=== PATIENT | female | born 1970 | race Caucasian/White ===

== ENCOUNTER 2018-12-12 07:23 | Day surgery (SDC) | payer OTHER ==
[~2018-12-12] VITALS: Ht 162.6 cm; Wt 82.6 kg
[2018-12-12] MEDS ORDERED: BUPIVACAINE-MPF/EPI 0.25% 30 ML VIAL INJ ONE (08:59)
[2018-12-12] MEDS ORDERED: LIDOCAINE 1% 500 MG/50 ML VIAL ONE (08:59)
[2018-12-12] MEDS ORDERED: MORPHINE SULFATE 4 MG/ML SYR IV PRN (11:40)
[2018-12-12] MEDS ORDERED: ONDANSETRON 4 MG/2 ML VIAL IV PRN (11:40)
[2018-12-12] MEDS ORDERED: HYDROcodone/APAP 5/325 MG 1 TAB TAB PO PRN (11:40)
[2018-12-12] MEDS ORDERED: HYDROmorphone 1 MG/ML AMP IVP PRN (11:40)
[2018-12-12] MEDS ORDERED: MORPHINE SULFATE 2 MG/ML SYR IVP PRN (11:40)
== END 2018-12-12 12:15 | disposition home or self-care (01) ==
LOC: MDS 07:23 → MMU 07:23 → MDS 12:15
PROVIDERS: ATTEND Surgery
DX: D17.1 Benign lipomatous neoplasm of skin and subcutaneous tissue of trunk (principal); Z98.51 Tubal ligation status
CPT/HCPCS: 21931; 88304; J0690; J2001; J3490; J7060

== ENCOUNTER 2019-01-30 06:11 | Day surgery (SDC) | payer OTHER ==
[~2019-01-30] VITALS: Ht 162.6 cm; Wt 82.6 kg
[2019-01-30] MEDS ORDERED: BUPIVACAINE-MPF/EPI 0.5% 30 ML VIAL INJ ONE (08:06)
[2019-01-30] MEDS ORDERED: PROPOFOL 200 MG/20 ML VIAL IV ONE (08:09)
[2019-01-30] MEDS ORDERED: SEVOFLURANE 250 ML BTL INH ONE (08:09)
[2019-01-30] MEDS ORDERED: fentaNYL 0.05 MG/ML VIAL ONE (08:15)
[2019-01-30] MEDS ORDERED: MIDAZOLAM 2 MG/2 ML VIAL ONE (08:16)
[2019-01-30] MEDS ORDERED: HYDROmorphone 1 MG/ML AMP IVP PRN ×2 (09:00→09:35)
[2019-01-30] MEDS ORDERED: ONDANSETRON 4 MG/2 ML VIAL IVP PRN (09:00)
[2019-01-30] MEDS ORDERED: MORPHINE SULFATE 4 MG/ML SYR IV PRN (09:35)
[2019-01-30] MEDS ORDERED: MORPHINE SULFATE 2 MG/ML SYR IVP PRN (09:35)
[2019-01-30] MEDS ORDERED: HYDROcodone/APAP 5/325 MG 1 TAB TAB PO PRN (09:35)
[2019-01-30] MEDS ORDERED: ONDANSETRON 4 MG/2 ML VIAL IV PRN (10:30)
== END 2019-01-30 10:36 | disposition home or self-care (01) ==
LOC: MOR 06:11 → MMU 06:12 → MOR 10:36
PROVIDERS: ATTEND Surgery
DX: D17.1 Benign lipomatous neoplasm of skin and subcutaneous tissue of trunk (principal); E66.3 Overweight
CPT/HCPCS: 21931; 71045; 81025; 88304; J0690; J2250; J2704; J3010; J3490; J7060; J7120

== ENCOUNTER 2019-10-03 06:13 | Day surgery (SDC) | payer OTHER, SELFPAY ==
[~2019-10-03] VITALS: Ht 167.6 cm; Wt 81.6 kg
[2019-10-03] MEDS ORDERED: diphenhydrAMINE 50 MG/ML VIAL ONE (07:19)
[2019-10-03] MEDS ORDERED: fentaNYL 0.05 MG/ML VIAL ONE (07:19)
[2019-10-03] MEDS ORDERED: MIDAZOLAM 2 MG/2 ML VIAL ONE (07:20)
[2019-10-03] MEDS ORDERED: LIDOCAINE 2% 100 MG/5 ML UJET TP ONE (07:20)
[2019-10-03] MEDS ORDERED: MIDAZOLAM 2 MG/2 ML VIAL IVP ONE (08:10)
[2019-10-03] MEDS ORDERED: fentaNYL 0.05 MG/ML VIAL IVP ONE (08:10)
== END 2019-10-03 08:50 | disposition home or self-care (01) ==
LOC: MDS 06:13 → MMU 06:17 → MDS 08:50
PROVIDERS: ATTEND Internal Medicine Gastroenterology
DX: K92.1 Melena (principal); K64.8 Other hemorrhoids; K64.4 Residual hemorrhoidal skin tags; Z98.890 Other specified postprocedural states; K59.00 Constipation, unspecified; K21.9 Gastro-esophageal reflux disease without esophagitis; Z79.899 Other long term (current) drug therapy; Z79.2 Long term (current) use of antibiotics
CPT/HCPCS: 36415; 45378; 81025; J2250; J3010; J1200